=== PATIENT | male | born 1960 | race Caucasian/White ===

== ENCOUNTER 2020-05-26 15:10 | Inpatient (IN) | payer BC ==
[~2020-05-26] VITALS: Ht 188 cm; Wt 137.0 kg
[2020-05-30 08:32] VITALS: BP 139/67; PULSE 16; TEMP 98.9
--- NOTE | 2020-05-30 10:29 | NUR ---
SW met with the patient to discuss discharge plan. The patient lives in [place] with his , Nevaeh (ph#[phone]), and daughter. He reports independence with ADLs and does not have any DME. The patient's PCP is Dr. Luis Enrique Witt and he receives his medications at the [facility] in [place]. He reports no difficulties obtaining his meds. The patient does not have advanced directives completed, but he was interested in obtaining a form for DPOA-HC. YUNI provided. The patient plans to return home with his family upon discharge. No additional needs at this time.
[2020-05-30] MEDS ORDERED: ZYLOPRIM 300MG300 MG PO ×2 (10:38→10:51)
[2020-05-30] MEDS ORDERED: MAG-OX 400400 MG/TAB PO (10:42)
[2020-05-30] MEDS ORDERED: NEURONTIN300 MG/CAP PO (10:43)
[2020-05-30] MEDS ORDERED: ZOLOFT 50MG50 MG PO (10:46)
[2020-05-30] MEDS ORDERED: GLUCOPHAGE1000 MG PO (10:48)
[2020-05-30] MEDS ORDERED: KLOR-CON M2020 MEQ PO (10:49)
[2020-05-30] MEDS ORDERED: TRICOR145 MG PO (10:49)
[2020-05-30] MEDS ORDERED: MIDAMOR 5MG TAB5 MG PO (10:51)
[2020-05-30] MEDS ORDERED: ELIQUIS 5MG PO (10:52)
[2020-05-30] MEDS ORDERED: ALLEGRA ALLERG180 MG PO (10:53)
[2020-05-30 12:00] LABS: BASO # 0.1 (0.0-0.2); BASO % 0.7 % (0.0-2.0); EOS # 0.2 (0.0-0.7); EOS % 2.4 % (0-4.0); GRAN # 5.9 (1.4-6.5); HEMATOCRIT 38.3 % (42.0-52.0); HEMOGLOBIN 13.3 g/dl (13.5-18.0); LYMPH # 1.5 (1.2-3.4); LYMPH % 18.3 % (20.0-51.0); MEAN CELL VOLUME 87 fl (80.0-100.0); MEAN CORPUSCULAR HEMOGLOBIN 30 pg (27.0-31.0); MEAN CORPUSCULAR HGB CONC 35 g/dl (33.0-37.0); MEAN PLATELET VOLUME 9.1 fl (7.4-10.4); MONO # 0.6 (0.1-0.6); MONO % 7.4 % (1.7-9.3); PLATELET COUNT 178 K/mm3 (130-400); REDCELL DISTRIBUTION WIDTH-CV 12.9 % (11.5-14.5)
[2020-05-30 12:09] LABS: ALBUMIN 3.9 gm/dL (3.5-5.0); BILIRUBIN,TOTAL 0.5 mg/dL (0.0-1.0); CREATININE, serum 0.76 (0.66-1.25); INR 1.1 (0.8-3.0); MAGNESIUM 1.5 mg/dL (1.6-2.3); POTASSIUM 4.3 mmol/L (3.4-5.0); PROTHROMBIN TIME 12.8 SECONDS (9.7-12.8); TOTAL PROTEIN 7.1 gm/dL (6.4-8.2)
[2020-05-30 16:12] VITALS: BP 134/78; PULSE 78; TEMP 98.2
--- NOTE | 2020-05-30 19:37 | NUR ---
Report given to Anamaria, discussed with patient the status of his home medications. Did call pharmacy and spoke with Luz Marina and was told that while impatient, he would not be charged for any medicaitons during the stay. The patient was concerned about cost during the hospital stay. Luz Marina reported that Jayson would come educate patient in the morning during rounds. Patient has been informed of this information.
[2020-05-30 20:47] VITALS: BP 154/81; PULSE 76; TEMP 97.9
--- NOTE | 2020-05-30 21:00 | NUR ---
Initial shift assessment done-- denies any chest pain/SOB,, sitting up in the chair watching some TV--did get a snack tonight. Tele on, VSS
[2020-05-30 23:11] VITALS: BP 144/70; PULSE 75
[2020-05-31 04:01] VITALS: BP 142/75; PULSE 76; TEMP 98
--- NOTE | 2020-05-31 04:43 | NUR ---
Quiet night- VSS, no chest pain/SOB, Tele on-SR,, HR 60-70,s all night,
[2020-05-31 06:46] LABS: BASO # 0.1 (0.0-0.2); BASO % 0.9 % (0.0-2.0); EOS # 0.3 (0.0-0.7); EOS % 3.3 % (0-4.0); GRAN # 5.9 (1.4-6.5); GRAN % 64.7 % (42.2-75.2); HEMATOCRIT 39.9 % (42.0-52.0); HEMOGLOBIN 13.6 g/dl (13.5-18.0); LYMPH # 2.1 (1.2-3.4); LYMPH % 22.5 % (20.0-51.0); MEAN CELL VOLUME 87 fl (80.0-100.0); MEAN CORPUSCULAR HEMOGLOBIN 30 pg (27.0-31.0); MEAN CORPUSCULAR HGB CONC 34 g/dl (33.0-37.0); MEAN PLATELET VOLUME 9.5 fl (7.4-10.4); MONO # 0.7 (0.1-0.6); MONO % 7.3 % (1.7-9.3); PLATELET COUNT 192 K/mm3 (130-400); REDCELL DISTRIBUTION WIDTH-CV 12.9 % (11.5-14.5)
[2020-05-31 07:00] LABS: CALCIUM 8.9 mg/dL (8.4-10.2); CREATININE, serum 0.8 (0.66-1.25); MAGNESIUM 1.6 mg/dL (1.6-2.3)
[2020-05-31 07:30] VITALS: BP 122/73; PULSE 73; TEMP 98.4
--- NOTE | 2020-05-31 10:58 | NUR ---
Pt assessment completed and charted, medications administered per mar. Pt denies any pain, dizziness, chest pain, N/V/D, palpitations, SOB. Pt on tele, no issues. Pt on room air, breathing is even and unlabored. RWR INT IV flushes w/o complications. Mag currently running, no issues. Pt A&O, indpendent in room. BS active, LS cta, HRR. No edema noted. No further needs expressed.
--- NOTE | 2020-05-31 11:22 | NUR ---
First visit from the [facility] administrator. No needs right now.
[2020-05-31 11:47] VITALS: BP 135/77; PULSE 70; TEMP 98.5
[2020-05-31 15:49] VITALS: BP 146/74; PULSE 69; TEMP 98.3
--- NOTE | 2020-05-31 18:51 | NUR ---
Pt had uneventful day. Denied pain throughout day. Tolerating sotalol well. No further needs expressed.
[2020-05-31 19:44] VITALS: BP 133/76; PULSE 78; TEMP 98.2
--- NOTE | 2020-05-31 20:43 | NUR ---
Pt assessment completed and documented. Pt sitting up on the edge of his bed at this time. Pt alert and oriented x4. No complaints of pain. INT to right wirst without complications. Pt denies any other needs at this time. Call light within reach. Will continue to monitor.
[2020-05-31 23:22] VITALS: BP 141/72; PULSE 67; TEMP 98
[2020-06-01 03:45] VITALS: BP 141/73; PULSE 77; TEMP 97.9
--- NOTE | 2020-06-01 05:00 | NUR ---
Pt had uneventful shift. Pt rested well. Denied any pain thruoughout the night. Pt on telemetry. INT to right wrist without complications. Pt denies any other needs at this time. Call light within reach.
[2020-06-01 06:23] LABS: BASO # 0.1 (0.0-0.2); BASO % 0.6 % (0.0-2.0); EOS # 0.3 (0.0-0.7); EOS % 3.1 % (0-4.0); GRAN # 6.1 (1.4-6.5); GRAN % 67.5 % (42.2-75.2); HEMOGLOBIN 13.5 g/dl (13.5-18.0); LYMPH # 1.8 (1.2-3.4); MEAN CELL VOLUME 87 fl (80.0-100.0); MEAN CORPUSCULAR HEMOGLOBIN 30 pg (27.0-31.0); MEAN CORPUSCULAR HGB CONC 35 g/dl (33.0-37.0); MEAN PLATELET VOLUME 9.3 fl (7.4-10.4); MONO # 0.7 (0.1-0.6); MONO % 7.3 % (1.7-9.3); PLATELET COUNT 178 K/mm3 (130-400); REDCELL DISTRIBUTION WIDTH-CV 12.8 % (11.5-14.5)
[2020-06-01 06:35] LABS: CALCIUM 9.1 mg/dL (8.4-10.2); CREATININE, serum 0.71 (0.66-1.25); MAGNESIUM 1.6 mg/dL (1.6-2.3); POTASSIUM 4.1 mmol/L (3.4-5.0)
[2020-06-01 07:20] VITALS: BP 151/82; PULSE 76; TEMP 98.3
--- NOTE | 2020-06-01 10:51 | NUR ---
Patient is awake and alert in room. Currently denies pain. Respirations are even and nonlabored. Is eager to discharge home. No other needs verbalized. Call light and personal items are within reach.
[2020-06-01] MEDS ORDERED: BETAPACE 80MG80 MG PO (11:46)
[2020-06-01 11:50] VITALS: BP 120/79; PULSE 70; TEMP 98.7
--- NOTE | 2020-06-01 16:43 | NUR ---
PATIENT DISCHARGED HOME WITH AT 1550. ALL PAPERWORK REVIEWED AND SIGNED. HOME MEDICATIONS RETURNED TO PATIENT. OPTED TO AMBULATE TO PRIVATE VEHICLE LOCATED AT PATIENT ENTRANCE. PERSONAL BELONGINGS TAKEN WITH PATIENT.
== END 2020-06-01 15:50 | disposition home or self-care (01) | DRG 310 ==
LOC: MEDICAL 05-30 08:08
PROVIDERS: ADMIT Internal Medicine Adult Congenital Heart Disease
DX: I48.0 Paroxysmal atrial fibrillation (principal); E83.42 Hypomagnesemia; I34.0 Nonrheumatic mitral (valve) insufficiency; I10 Essential (primary) hypertension; E11.9 Type 2 diabetes mellitus without complications; E66.9 Obesity, unspecified; Z68.38 Body mass index [BMI] 38.0-38.9, adult; Z79.01 Long term (current) use of anticoagulants; Z95.818 Presence of other cardiac implants and grafts
CPT/HCPCS: J3475

== ENCOUNTER 2020-08-01 08:41 | Outpatient (CLI) | payer BC ==
--- NOTE | 2020-07-28 12:47 | NUR ---
CALLED AND SPOKE TO PT. ASKED HIM TO CALL THE OFFICE WHERE HE HAD THE COVID TESTING AND HAVE IT FAXED TO OUR LAB OFFICE
[~2020-08-01] VITALS: Ht 188.1 cm; Wt 133.0 kg
[~2020-08-01 08:41] MED LIST: ALLEGRA ALLERG180 MG PO; BETAPACE 80MG80 MG PO; ELIQUIS 5MG PO; GLUCOPHAGE1000 MG PO; KLOR-CON M2020 MEQ PO; MAG-OX 400400 MG/TAB PO; MIDAMOR 5MG TAB5 MG PO; NEURONTIN300 MG/CAP PO; TRICOR145 MG PO; ZOLOFT 50MG50 MG PO; ZYLOPRIM 300MG300 MG PO
[2020-08-01 09:33] LABS: HEMOGLOBIN 12.7 g/dl (13.5-18.0); MEAN CELL VOLUME 87 fl (80.0-100.0); MEAN CORPUSCULAR HEMOGLOBIN 28 pg (27.0-31.0); MEAN CORPUSCULAR HGB CONC 33 g/dl (33.0-37.0); MEAN PLATELET VOLUME 9.2 fl (7.4-10.4); PLATELET COUNT 254 K/mm3 (130-400); RED BLOOD COUNT 4.47 M/mm3 (4.20-5.60); REDCELL DISTRIBUTION WIDTH-CV 12.6 % (11.5-14.5)
[2020-08-01 09:41] LABS: PROTHROMBIN TIME 11.4 SECONDS (9.7-12.8)
[2020-08-01 09:44] LABS: ALBUMIN 4.3 gm/dL (3.5-5.0); BILIRUBIN,TOTAL 0.3 mg/dL (0.0-1.0); CREATININE, serum 0.82 (0.66-1.25); MAGNESIUM 1.6 mg/dL (1.6-2.3); POTASSIUM 4.6 mmol/L (3.4-5.0); TOTAL PROTEIN 7.3 gm/dL (6.4-8.2)
[2020-08-01 09:53] VITALS: BP 133/86; PULSE 73; TEMP 98
[2020-08-01] MEDS ORDERED: ELIQUIS 2.5 PO (10:50)
[2020-08-01 11:14] VITALS: BP 102/63; PULSE 66
[2020-08-01 11:15] VITALS: BP 122/81; PULSE 75
--- NOTE | 2020-08-01 11:15 | NUR ---
recieved report from Priya TORRES, pt is awake, rests in bed. VSS. states has no c/o. call light in reach
[2020-08-01 11:30] VITALS: BP 103/70; PULSE 68
--- NOTE | 2020-08-01 11:45 | NUR ---
pt sits on side of bed, no c/o, reviewed discharge inst. with pt on activity today, new RX at lower dose, and next appt with verbal understanding. IV d'cd intact. pt up in room dressed
[2020-08-01 12:00] VITALS: BP 108/67; PULSE 67
--- NOTE | 2020-08-01 12:10 | NUR ---
pt discharged via w/c to car with
== END 2020-08-01 12:10 | disposition home or self-care (01) ==
LOC: COL.RAD
PROVIDERS: Internal Medicine Adult Congenital Heart Disease
DX: I08.1 Rheumatic disorders of both mitral and tricuspid valves (principal); I48.91 Unspecified atrial fibrillation
CPT/HCPCS: J2704

== ENCOUNTER 2020-09-26 07:51 | Outpatient (CLI) | payer BC ==
[~2020-09-26 07:51] MED LIST changes: +ELIQUIS 2.5 PO
[2020-09-26] MEDS ORDERED: BETAPACE 80MG80 MG PO (08:15)
[2020-09-26 08:19] VITALS: BP 143/85; PULSE 74; TEMP 98.8
[2020-09-26 08:42] LABS: INR 1.2 (0.8-3.0); PROTHROMBIN TIME 13.4 SECONDS (9.7-12.8)
[2020-09-26 08:46] LABS: HEMATOCRIT 40.7 % (42.0-52.0); HEMOGLOBIN 13.5 g/dl (13.5-18.0); MEAN CELL VOLUME 82 fl (80.0-100.0); MEAN CORPUSCULAR HEMOGLOBIN 27 pg (27.0-31.0); MEAN CORPUSCULAR HGB CONC 33 g/dl (33.0-37.0); PLATELET COUNT 221 K/mm3 (130-400); RED BLOOD COUNT 4.95 M/mm3 (4.20-5.60); REDCELL DISTRIBUTION WIDTH-CV 13.3 % (11.5-14.5)
[2020-09-26 08:50] LABS: ALBUMIN 4.3 gm/dL (3.5-5.0); BILIRUBIN,TOTAL 0.5 mg/dL (0.0-1.0); CALCIUM 8.8 mg/dL (8.4-10.2); CREATININE, serum 0.79 (0.66-1.25); MAGNESIUM 1.4 mg/dL (1.6-2.3); TOTAL PROTEIN 7.4 gm/dL (6.4-8.2)
[2020-09-26 10:15] VITALS: BP 120/87; PULSE 71
--- NOTE | 2020-09-26 10:28 | NUR ---
Bedside report received from Trinh RN, pt is awake and alert, no complaints after MIGUELINA. Pt is able to drink water with no problem. Dr. Leyva in to discuss poc with patient. Pt remains on monitor, wctm post procedure vitals until discharge
[2020-09-26 10:30] VITALS: BP 142/89; PULSE 69
[2020-09-26 10:45] VITALS: BP 131/81; PULSE 66
[2020-09-26 11:00] VITALS: BP 120/74; PULSE 69
--- NOTE | 2020-09-26 11:15 | NUR ---
Pt is ready for discharge. he has recovered from MIGUELINA with no problem. I have reviewed dc and fu instructions with pt who denies any questions or concerns. IV is dc'd with cath intact, dressing applied. pt is steady on his feet, denies dizziness. escorted to exit via wheelchair.
== END 2020-09-26 11:30 | disposition home or self-care (01) ==
LOC: COL.RAD 07:51
PROVIDERS: Internal Medicine Adult Congenital Heart Disease
DX: I48.91 Unspecified atrial fibrillation (principal)
CPT/HCPCS: J2704; J7120

== ENCOUNTER 2021-09-28 07:31 | Outpatient (CLI) | payer BC ==
[2021-09-28] MEDS ORDERED: NEURONTIN300 MG/CAP PO (08:06)
[2021-09-28] MEDS ORDERED: B-12 500 MCG PO (08:06)
[2021-09-28] MEDS ORDERED: ASPIRIN E.C. 8181 MG PO (08:07)
[2021-09-28 08:44] VITALS: BP 142/92; PULSE 79; TEMP 98.5
[2021-09-28 08:53] LABS: HEMATOCRIT 42.3 % (42.0-52.0); HEMOGLOBIN 14.2 g/dl (13.5-18.0); MEAN CELL VOLUME 86 fl (80.0-100.0); MEAN CORPUSCULAR HEMOGLOBIN 29 pg (27.0-31.0); MEAN CORPUSCULAR HGB CONC 34 g/dl (33.0-37.0); MEAN PLATELET VOLUME 9.2 fl (7.4-10.4); PLATELET COUNT 175 K/mm3 (130-400); RED BLOOD COUNT 4.95 M/mm3 (4.20-5.60); REDCELL DISTRIBUTION WIDTH-CV 12.7 % (11.5-14.5)
[2021-09-28 09:00] LABS: CALCIUM 9.2 mg/dL (8.4-10.2); CREATININE, serum 0.8 mg/dL (0.72-1.25); POTASSIUM 3.9 mmol/L (3.5-4.5)
[2021-09-28 09:02] LABS: INR 1.2 (0.8-3.0)
[2021-09-28 09:45] VITALS: BP 121/86; PULSE 79
[2021-09-28 10:00] VITALS: BP 106/69; PULSE 97
[2021-09-28 10:15] VITALS: BP 116/76; PULSE 76
[2021-09-28 10:30] VITALS: BP 106/76; PULSE 79
[2021-09-28 10:45] VITALS: BP 126/77; PULSE 77
--- NOTE | 2021-09-28 11:05 | NUR ---
DC instructions reviewed with pt, he expresses understanding. He has tolerated PO fluids without issue. Stable on feet in room. INT DC'd with catheter intact. He is assisted out by wheelchair to 's car with belongings.
== END 2021-09-28 11:05 | disposition home or self-care (01) ==
LOC: COL.RAD 07:31
PROVIDERS: Internal Medicine Adult Congenital Heart Disease
DX: Z20.822 Contact with and (suspected) exposure to COVID-19 (principal)
CPT/HCPCS: J2704; J7030